=== PATIENT | male | born 1985 | race Caucasian/White ===

== ENCOUNTER 2022-10-24 19:04 | Inpatient (IN) | payer SELFPAY ==
[~2022-10-24] VITALS: Ht 172.7 cm; Wt 86.2 kg
[2022-10-24 19:15] VITALS: BP 122/65
--- NOTE | 2022-10-24 19:18 | NUR ---
TO LOBBY A/W BED AMBULATORY
[2022-10-24 20:01] LABS: APPEARANCE,URINE CLEAR (CLEAR); BILIRUBIN,URINE NEGATIVE (NEGATIVE); BLOOD, URINE NEGATIVE (NEGATIVE); COLOR,URINE YELLOW (YELLOW); LEUKOCYTE ESTERASE ,URINE NEGATIVE (NEGATIVE); NITRITE, URINE NEGATIVE (NEGATIVE); PH,URINE 5.5 (5.0-9.0); UGLUCOSE NEGATIVE (NEGATIVE)
[2022-10-24] MEDS ORDERED: ONDANSETRON 4 MG/2 ML VIAL IM ONE (20:30)
[2022-10-24] MEDS ORDERED: KETOROLAC 15 MG/ML VIAL IM ONE (20:30)
[2022-10-24 20:52] LABS: BASOPHILS % (AUTO) 0.4 % (0.0-2.0); EOSINOPHILS # (AUTO) 0.1 K/uL (0-0.4); EOSINOPHILS % (AUTO) 1.2 % (0.0-4.0); HEMATOCRIT 42.3 % (36-52); HEMOGLOBIN 14.4 g/dL (12.0-18.0); LYMPHOCYTES # (AUTO) 2.6 K/uL (2.0-11.5); LYMPHOCYTES % (AUTO) 28.3 % (20.5-51.1); MEAN CORPUSCULAR HEMOGLOBIN 30 pg (27-31); MEAN CORPUSCULAR HGB CONC 34 g/dL (33-37); MEAN CORPUSCULAR VOLUME 88.2 fL (80-94); MONOCYTES # (AUTO) 0.6 K/uL (0.8-1.0); MONOCYTES % (AUTO) 6.7 % (1.7-9.3); NEUTROPHILS # (AUTO) 5.9 K/uL (1.8-7.7); NEUTROPHILS % (AUTO) 63.4 % (42.2-75.2); PLATELET COUNT (AUTO) 297 K/uL (140-450); RED CELL DISTRIBUTION WIDTH 13.7 % (11.6-13.7); WHITE BLOOD COUNT (AUTO) 9.3 K/uL (4.8-10.8)
[2022-10-24 21:24] LABS: ALBUMIN 3.9 g/dL (3.4-5.0); ANION GAP 11.2 (8-16); CARBON DIOXIDE 27.8 mmol/L (21-32); CREATININE 0.9 mg/dL (0.6-1.3); TOTAL BILIRUBIN 0.5 mg/dL (0.0-1.0)
--- NOTE | 2022-10-24 22:18 | NUR ---
PT TO 2
[2022-10-24] MEDS ORDERED: MORPHINE SULFATE 4 MG/ML SYR IVP ONE (22:50)
--- NOTE | 2022-10-24 23:11 | NUR ---
Patient lying in bed, A/Ox4, chest rise and fall symmetrical, no c/o pain or s/s of distress, patient on monitor
--- NOTE | 2022-10-25 01:20 | NUR ---
Patient lying in bed, A/Ox4, chest rise and fall symmetrical, no c/o pain or s/s of distress, patient on monitor
[2022-10-25] MEDS ORDERED: PIPERACILLIN/TAZOBACTAM 3.375 GM VIAL IV ONE ×2 (01:23→04:12)
[2022-10-25] MEDS: PIPERACILLIN/TAZOBACTAM 3.375 GM in DEXTROSE 5% 50 ML IV SCH ×4 (01:27→21:00)
--- NOTE | 2022-10-25 02:30 | NUR ---
Patient lying in bed, A/Ox4, chest rise and fall symmetrical, no c/o pain or s/s of distress, patient on monitor
--- NOTE | 2022-10-25 03:25 | NUR ---
Patient will be admitted to care of Darlene OLIVEIRA. Admited to [facility]. Will go to room 111A. Belongings list completed. Report to Darlene OLIVEIRA. Darlene OLIVEIRA verbalized understanding of report, no further questions.
[2022-10-25 04:00] VITALS: BP 115/77
--- NOTE | 2022-10-25 04:00 | NUR ---
ADMITTED 36Y.O.MALE FROM ER.ORIENTED TO ROOM.CALL SYSTEM EXPLAINED AND IN REACH.VS STABLE.SL.PATENT IN RT.AC.DENIED PAIN AT TIME OF ADMISSION.
--- NOTE | 2022-10-25 06:14 | NUR ---
2ND DOSE OF ZOSYN GIVEN.PT TOLERATED WELL.NO S/S OF PAIN NOTED.
--- NOTE | 2022-10-25 07:10 | NUR ---
RECEIVED REPORT FROM NIGHTSHIFT NURSE KRISTINE FOR CONTINUITY OF CARE. PT IN STABLE CONDITION. NO SIGNS OF PAIN OR DISTRESS NOTED AT THIS TIME.
[2022-10-25 07:13] LABS: BASOPHILS % (AUTO) 0.3 % (0.0-2.0); EOSINOPHILS # (AUTO) 0.1 K/uL (0-0.4); EOSINOPHILS % (AUTO) 1.6 % (0.0-4.0); HEMATOCRIT 42.2 % (36-52); HEMOGLOBIN 14.2 g/dL (12.0-18.0); LYMPHOCYTES # (AUTO) 1.8 K/uL (2.0-11.5); MEAN CORPUSCULAR HEMOGLOBIN 30 pg (27-31); MEAN CORPUSCULAR HGB CONC 34 g/dL (33-37); MONOCYTES # (AUTO) 0.6 K/uL (0.8-1.0); MONOCYTES % (AUTO) 8.4 % (1.7-9.3); NEUTROPHILS # (AUTO) 4.1 K/uL (1.8-7.7); NEUTROPHILS % (AUTO) 62.7 % (42.2-75.2); PLATELET COUNT (AUTO) 286 K/uL (140-450); RED BLOOD CELL COUNT(AUTO) 4.79 MIL/uL (4.20-6.10); RED CELL DISTRIBUTION WIDTH 13.6 % (11.6-13.7); WHITE BLOOD COUNT (AUTO) 6.6 K/uL (4.8-10.8)
[2022-10-25 07:18] LABS: ANION GAP 9.7 (8-16); CARBON DIOXIDE 29.1 mmol/L (21-32); POTASSIUM 3.8 mmol/L (3.5-5.1)
[2022-10-25 08:00] VITALS: BP 107/64
[2022-10-25] MEDS ORDERED: MORPHINE SULFATE 4 MG/ML SYR IVP PRN (12:50)
[2022-10-25] MEDS ORDERED: POTASSIUM CHLORIDE 10 MEQ TABER PO PRN (13:05)
[2022-10-25] MEDS ORDERED: MAG SULF 2000 MG/WATER PREMIX 50 ML IV PRN (13:05)
[2022-10-25] MEDS ORDERED: ONDANSETRON 4 MG/2 ML VIAL IVP PRN (13:05)
[2022-10-25] MEDS ORDERED: ACETAMINOPHEN 325 MG TAB PO PRN (13:05)
[2022-10-25] MEDS ORDERED: HYDROcodone/APAP 7.5/325 MG 1 TAB PO PRN (13:05)
--- NOTE | 2022-10-25 13:30 | NUR ---
DR. HUNT IN TO SEE PT, NEW ORDERS FOR SX CONSULT, MD'S NOTIFIED. NEW ORDERS FOR IVF AND HIDA SCAN GIVEN.
[2022-10-25] MEDS: NACL 0.9% 1,000 ML IV SCH ×2 (13:37→21:28)
[2022-10-25 13:51] LABS: PROTHROMBIN TIME 10.4 secs (10.8-13.4)
--- NOTE | 2022-10-25 15:00 | NUR ---
[facility] CALLED CONCERNING HIDA SCAN, STATED TO HAVE THE PT DRINK MILK AND HOLD ALL NARCOTICS AND OPIATES. HIDA SCAN TO BE DONE LATER TONIGHT.
[2022-10-25 15:17] LABS: CHOL/HDL RATIO 2.9 (1-4.5); FREE T4 (FREE THYROXINE) 1.15 ng/dL (0.76-1.46); HDL CHOLESTEROL 59 mg/dL (40-60); LDL (CALC) 104 mg/dL (60-100); MAGNESIUM 2.4 mg/dL (1.8-2.4); PHOSPHORUS 5.1 mg/dL (2.5-4.9); TRIGLYCERIDES 54 mg/dL (30-150)
[2022-10-25 16:00] VITALS: BP 112/69
--- NOTE | 2022-10-25 19:18 | NUR ---
ENDORSED PT TO NIGHTSHIFT NURSE PACO FOR CONTINUITY OF CARE. PT IN STABLE CONDITION.
--- NOTE | 2022-10-25 19:19 | NUR ---
RECEIVED ENDORSEMENT FROM GHANSHYAM OLIVEIRA, PATIENT WAS STABLE DURING SHIFT REPORT. PATIENT IN BED AWAKE WITH FAMILY AT BEDSIDE. PATIENT ALERT AND ORIENT X 4 JAMAICAN SPEAKING BUT ABLE TO COMMUNICATE IN TURKISH. NO COMPLAINTS OF PAIN/DISCOMFORT AT THIS TIME. PATIENT WAS MADE AWARE OF HIDA SCAN SCHEDULED FOR THIS EVENING AWAITING THE MD. NO S/S OF RESPIRATORY DISCOMFORT. IV SITE CLEAN AND INTACT FOR THE SCAN LATER. SIDE RAILS UP X 2 FOR SAFETY AND COMFORT. CALL LIGHT WITHIN REACH AND PATIENT IS AWARE OF HOW TO USE THE DEVICE. [email or web address]
[2022-10-25] MEDS ORDERED: KETOROLAC 30 MG/ML VIAL IVP PRN (19:20)
[2022-10-25 20:00] VITALS: BP 118/70
--- NOTE | 2022-10-25 21:00 | NUR ---
ZOSYN IS NOT ADMINISTERED, PT IS OUT OF THE UNIT.
[2022-10-25] MEDS: DOCUSATE SODIUM 100 MG GELCAP PO SCH (21:13)
--- NOTE | 2022-10-25 21:45 | NUR ---
AT 2131 PATIENT WAS TAKEN TO [facility] FOR HIDA SCAN. PATIENT COMPLAINED OF PAIN AND WAS INFORMED ONE HOUR INTO THE SCAN WE CAN GIVE HIM THE MORPHINE PRN. PATIENT UNDERSTOOD. PATIENT'S ROOM WAS LABELED RADIOACTIVE FOR 24 HOURS. [email or web address]
--- NOTE | 2022-10-25 22:47 | NUR ---
PATIENT IS NOT POSITIVE FOR CHOLECYSTIS. HIDA SCAN WAS NORMAL FOR DR ARRIOLA. DR ARRIOLA REPORTED FINDING TO DR HUNT. POSSIBLE DISCHARGE AND FOLLOW UP OUTSIDE CLINIC WITH DR ARRIOLA. [email or web address]
--- NOTE | 2022-10-25 23:03 | NUR ---
PATIENT RETURNED FROM HIDA SCAN. COMPLAINED OF PAIN. COVERING RN GAVE MORPHINE FOR HIS PAIN. NURSING WILL MONITOR FOR SIDE EFFECTS AND EFFECTIVENESS. [email or web address]
[2022-10-26] VITALS: BP 129/90
--- NOTE | 2022-10-26 01:54 | NUR ---
PATIENT IN BED ASLEEP. NO NOTED S/S OF PAIN/DISCOMFORT. NO NOTED S/S OF RESPIRATORY DISTRESS. [email or web address]
[2022-10-26 04:00] VITALS: BP 86/45
--- NOTE | 2022-10-26 04:40 | NUR ---
PATIENT IN BED ASLEEP. NO S/S OF PAIN/DISCOMFORT. NO RESPIRATORY DISTRESS. [email or web address]
[2022-10-26] MEDS: PIPERACILLIN/TAZOBACTAM 3.375 GM in DEXTROSE 5% 50 ML IV SCH (04:55)
[2022-10-26] MEDS: NACL 0.9% 1,000 ML IV SCH (05:29)
--- NOTE | 2022-10-26 07:17 | NUR ---
ENDORSED TO AM SHIFT RN GHANSHYAM, PATIENT WAS STABLE DURING SHIFT REPORT. [email or web address]
--- NOTE | 2022-10-26 07:17 | NUR ---
RECEIVED REPORT FROM NIGHTSHIFT NURSE PACO FOR CONTINUITY OF CARE. PT IN STABLE CONDITION.
[2022-10-26 07:20] LABS: BASOPHILS % (AUTO) 0.4 % (0.0-2.0); EOSINOPHILS # (AUTO) 0.1 K/uL (0-0.4); EOSINOPHILS % (AUTO) 2.3 % (0.0-4.0); HEMATOCRIT 43.3 % (36-52); HEMOGLOBIN 14.5 g/dL (12.0-18.0); LYMPHOCYTES # (AUTO) 1.6 K/uL (2.0-11.5); LYMPHOCYTES % (AUTO) 31.5 % (20.5-51.1); MEAN CORPUSCULAR HEMOGLOBIN 30 pg (27-31); MEAN CORPUSCULAR HGB CONC 34 g/dL (33-37); MEAN CORPUSCULAR VOLUME 88.8 fL (80-94); MONOCYTES # (AUTO) 0.4 K/uL (0.8-1.0); MONOCYTES % (AUTO) 7.1 % (1.7-9.3); NEUTROPHILS # (AUTO) 2.9 K/uL (1.8-7.7); NEUTROPHILS % (AUTO) 58.7 % (42.2-75.2); PLATELET COUNT (AUTO) 286 K/uL (140-450); RED BLOOD CELL COUNT(AUTO) 4.88 MIL/uL (4.20-6.10); RED CELL DISTRIBUTION WIDTH 13.5 % (11.6-13.7)
[2022-10-26 07:30] LABS: ANION GAP 12.6 (8-16); CARBON DIOXIDE 28.3 mmol/L (21-32); POTASSIUM 3.9 mmol/L (3.5-5.1)
[2022-10-26 07:32] LABS: MAGNESIUM 2.1 mg/dL (1.8-2.4); PHOSPHORUS 4.5 mg/dL (2.5-4.9)
[2022-10-26 08:00] VITALS: BP 109/70
[2022-10-26] MEDS ORDERED: PANTOPRAZOLE 40 MG INJ VIAL IVP SCH (09:00)
--- NOTE | 2022-10-26 09:01 | NUR ---
PATIENT HAS BEEN SCREENED AND CATEGORIZED LOW NUTRITION RISK. PATIENT WILL BE SEEN WITHIN 7 DAYS OF ADMISSION. 10/24/22-10/31/[address]
[2022-10-26] MEDS: DOCUSATE SODIUM 100 MG GELCAP PO SCH (09:23)
[2022-10-26 10:40] VITALS: BP 109/70
== END 2022-10-26 12:50 | disposition home or self-care (01) | DRG 392 ==
LOC: MED 19:04 → MMU 23:02 → MTU 10-25 02:38
DX: R10.9 Unspecified abdominal pain (principal); E87.1 Hypo-osmolality and hyponatremia; Z20.822 Contact with and (suspected) exposure to COVID-19; E86.0 Dehydration; Z90.49 Acquired absence of other specified parts of digestive tract
CPT/HCPCS: 36415; 71045; 76705; 78445; 80048; 80053; 81003; 83036; 83605; 83690; 83735; 83880; 84100; 84439; 84443; 84484; 85025; 85610; 85730; 87040; 87081; 93005; 96372; 96374; 99285; A9510; C9113; J1644; J1885; J2270; J2405; J2543; J7060; Q0092

== ENCOUNTER 2022-11-04 12:57 | Emergency (ER) | payer SELFPAY ==
[~2022-11-04] VITALS: Ht 180.3 cm; Wt 87.5 kg
[2022-11-04 13:02] VITALS: BP 106/79
[2022-11-04 14:21] LABS: BASOPHILS % (AUTO) 0.3 % (0.0-2.0); EOSINOPHILS # (AUTO) 0.2 K/uL (0-0.4); EOSINOPHILS % (AUTO) 1.9 % (0.0-4.0); HEMATOCRIT 44.8 % (36-52); HEMOGLOBIN 15.1 g/dL (12.0-18.0); LYMPHOCYTES # (AUTO) 2.2 K/uL (2.0-11.5); LYMPHOCYTES % (AUTO) 26.1 % (20.5-51.1); MEAN CORPUSCULAR HEMOGLOBIN 30 pg (27-31); MEAN CORPUSCULAR HGB CONC 34 g/dL (33-37); MEAN CORPUSCULAR VOLUME 87.5 fL (80-94); MONOCYTES # (AUTO) 0.5 K/uL (0.8-1.0); MONOCYTES % (AUTO) 5.9 % (1.7-9.3); NEUTROPHILS # (AUTO) 5.4 K/uL (1.8-7.7); NEUTROPHILS % (AUTO) 65.8 % (42.2-75.2); PLATELET COUNT (AUTO) 306 K/uL (140-450); RED BLOOD CELL COUNT(AUTO) 5.13 MIL/uL (4.20-6.10); RED CELL DISTRIBUTION WIDTH 13.4 % (11.6-13.7); WHITE BLOOD COUNT (AUTO) 8.3 K/uL (4.8-10.8)
[2022-11-04 14:45] LABS: ALBUMIN 4.2 g/dL (3.4-5.0); ANION GAP 11.8 (8-16); CARBON DIOXIDE 28.9 mmol/L (21-32); CREATININE 0.8 mg/dL (0.6-1.3); POTASSIUM 3.7 mmol/L (3.5-5.1); TOTAL BILIRUBIN 0.4 mg/dL (0.0-1.0)
[2022-11-04] MEDS ORDERED: HYDROcodone/APAP 5/325 MG 1 TAB TAB PO ONE (15:20)
--- NOTE | 2022-11-04 15:51 | NUR ---
PT AMBULATED TO BED 2 WITH STEADY GAIT
--- NOTE | 2022-11-04 15:56 | NUR ---
PATIENT PRESENTS TO ED WITH ABDOMINAL PAIN, WAS SEEN IN [facility] FOR R/O CHOLECYSTITIS . SKIN IS PINK/WARM/DRY; AAOX4 WITH EVEN AND STEADY GAIT; LUNGS CLEAR BL; HR EVEN AND REGULAR; PT DENIES ANY FEVER, CP, SOB, OR COUGH AT THIS TIME; PATIENT STATES PAIN OF 7/10 AT THIS TIME; VSS; PATIENT POSITIONED FOR COMFORT; HOB ELEVATED; BEDRAILS UP X2; BED DOWN. ER MD MADE AWARE OF PT STATUS.
[2022-11-04 18:20] LABS: APPEARANCE,URINE CLEAR (CLEAR); BILIRUBIN,URINE NEGATIVE (NEGATIVE); BLOOD, URINE NEGATIVE (NEGATIVE); COLOR,URINE YELLOW (YELLOW); LEUKOCYTE ESTERASE ,URINE NEGATIVE (NEGATIVE); NITRITE, URINE NEGATIVE (NEGATIVE); UGLUCOSE NEGATIVE (NEGATIVE)
--- NOTE | 2022-11-04 18:23 | NUR ---
Patient discharged with v/s stable. Written and verbal after care instructions given and explained. Patient verbalized understanding. Ambulatory with steady gait. All questions addressed prior to discharge. Advised to follow up with PMD.
== END 2022-11-04 18:23 | disposition home or self-care (01) ==
LOC: MED 12:57
DX: R10.13 Epigastric pain (principal)
CPT/HCPCS: 36415; 76705; 80053; 81003; 83690; 85025; 99284; Q0092